=== PATIENT | female | born 1935 | race Caucasian/White ===

== ENCOUNTER → 2016-09-07 | Outpatient (CLI) | payer MEDICARE, OTHER | END | disposition home or self-care (01) | LOC: GMAJ 10:29 | PROVIDERS: ATTEND Family Medicine | DX: E03.9 Hypothyroidism, unspecified (principal) ==

== ENCOUNTER → 2016-10-24 | Outpatient (CLI) | payer MEDICARE, OTHER | END | disposition home or self-care (01) | LOC: GMAJ 10:06 | PROVIDERS: ATTEND Family Medicine | DX: E03.9 Hypothyroidism, unspecified (principal) ==

== ENCOUNTER → 2016-12-11 | Outpatient (CLI) | payer MEDICARE, OTHER ==
--- NOTE | 2016-12-13 13:21 | MAM ---
History: Well woman exam. Date of exam: 12/11/2016 Services provided: Bilateral full field digital screening mammography. CAD, the images were reviewed with R2 computer aided detection. FINDINGS: Glandular tissue is scattered glandular contour with increased mammographic density. Study is compared with 2013 exam. No dominant mass, architectural distortion or clustered microcalcification. IMPRESSION: Benign exam Recommendation: Routine annual mammography BIRAD CATEGORY: 2 BENIGN Electronically signed by: Megan Robison MD 12/13/2016 1:18 PM CDT Workstation: [id number]
== END ==
LOC: MAMMO 14:36
PROVIDERS: ATTEND Family Medicine
DX: Z12.31 Encounter for screening mammogram for malignant neoplasm of breast (principal)

== ENCOUNTER → 2017-03-01 | Outpatient (CLI) | payer MEDICARE, OTHER | LOC: GMAJ 10:37 | PROVIDERS: ATTEND Family Medicine | DX: E03.9 Hypothyroidism, unspecified (principal) ==

== ENCOUNTER → 2017-06-17 | Outpatient (CLI) | payer MEDICARE, OTHER | END | disposition home or self-care (01) | LOC: GMAJ 12:10 | PROVIDERS: ATTEND Family Medicine | DX: E03.9 Hypothyroidism, unspecified (principal) ==

== ENCOUNTER → 2017-06-24 | Outpatient (CLI) | payer MEDICARE, OTHER | END | disposition home or self-care (01) | LOC: GMA 10:58 | PROVIDERS: ATTEND Physician Assistant | DX: N30.00 Acute cystitis without hematuria (principal) ==

== ENCOUNTER → 2017-11-08 | Outpatient (CLI) | payer MEDICARE, OTHER | LOC: GMAJ 11:28 | PROVIDERS: ATTEND Family Medicine | DX: N39.0 Urinary tract infection, site not specified (principal) ==

== ENCOUNTER → 2017-11-27 | Outpatient (CLI) | payer MEDICARE, OTHER ==
--- NOTE | 2017-11-27 16:14 | CT ---
EXAM DESCRIPTION: Abdoment/Pelvis w/o Contrast CLINICAL HISTORY: 82 years, Female, HEMATURIA COMPARISON: CT chest with contrast August 06, 2010 TECHNIQUE: CT of the abdomen and pelvis is performed according to our non contrast protocol. FINDINGS: The lung bases are clear. Heart is prominent size. Coronary artery calcification is present. Left hemidiaphragm is elevated. 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 Small amount fluid is seen anterior to the liver which could be unusual position of the gallbladder or small amount of loculated ascites. Gallbladder was normally positioned on the previous study. Liver, spleen, and pancreas are otherwise unremarkable. No major change since previous study. Question small cyst of the posterior superior right kidney 1 cm in size. The right kidney is otherwise unremarkable. The left kidney is unremarkable. No stones or hydronephrosis. Small bowel loops appear normal in caliber with normal wall thickness. There is no lymphadenopathy, inflammation, or free fluid observed. Severe levoscoliosis of the thoracolumbar spine. In the pelvis, the appendix is not seen and may be surgically absent. No inflammation around the cecum or terminal ileum or sigmoid colon. No stones in the distal ureters or bladder. Urinary bladder appears quite thick walled. This could be muscular hypertrophy or chronic cystitis. Correlate with urinalysis. Rectal wall thickness is normal for degree of distention. No free fluid or mass in the pelvis. Uterus and ovaries are small, normal for age. No inguinal or lower pelvic adenopathy. Coronal and sagittal reformatted images confirm the findings. Bladder wall appears trabeculated with a few diverticula which may indicate neurogenic bladder. Clinical correlation recommended. IMPRESSION: Small fluid collection anterior to the liver versus anomalous position of the gallbladder. Severe levoscoliosis of the lower thoracic and lumbar spine. Thick-walled bladder with small bladder diverticula. See above. This exam was performed according to our departmental dose-optimization program, which includes automated exposure control, adjustment of the mA and/or kV according to patient size and/or use of iterative reconstruction technique. Total DLP equals 263.39 mGycm. Electronically signed by: Alfredo Boyce MD 11/27/2017 4:13 PM CDT
== END ==
LOC: CT 14:22
PROVIDERS: ATTEND Urology
DX: R31.0 Gross hematuria (principal); N32.3 Diverticulum of bladder

== ENCOUNTER → 2017-12-18 | Outpatient (CLI) | payer MEDICARE, OTHER | LOC: LAB.O 14:32 | PROVIDERS: ATTEND Urology | DX: R31.0 Gross hematuria (principal) ==

== ENCOUNTER → 2018-01-16 | Outpatient (CLI) | payer MEDICARE, OTHER ==
--- NOTE | 2018-01-17 16:14 | MAM ---
EXAM DESCRIPTION: 3D Screening BILATERAL : Digital Mammography. CLINICAL HISTORY: 82 years Female SCREENING no complaints. Mother with breast cancer. No childbirth. Postmenopausal. HRT 5 or more years ago. Prior left breast biopsy benign. COMPARISON: 2-D digital screening bilateral study 12/11/2016.. Report from prior examination also reviewed. TECHNIQUE: Bilateral CC and MLO projection full-field images, 3-D tomosynthesis digital mammographic technique. CAD not utilized. FINDINGS: The breast parenchymal density pattern is: Heterogeneously dense breast tissue, which may obscure small masses. No skin thickening or nipple retraction. Bilateral vascular calcifications. Bilateral solitary microcalcifications. Focal asymmetry in the anterior third of the right breast upper outer quadrant at T10 130 clock position approximately 5 cm from the nipple. No new focal, stellate mass or density, focal asymmetry , and no suspicious microcalcifications left breast. IMPRESSION: BI-RADS CATEGORY: 0 - INCOMPLETE- Need additional imaging evaluation. FOLLOW-UP: Recall for additional imagin-D Anu synthesis full-field LM projection images right breast. Spot magnification of the region of interest anterior third right breast 2-D CC projection. Follow-up targeted right breast ultrasound if indicated by diagnostic images.. Written communication concerning the IMPRESSION and Follow-up, will be mailed to the patient and referring health care provider. Electronically signed by: Dominguez Macedo MD 01/17/2018 4:12 PM CDT
== END ==
LOC: MAMMO 13:00
PROVIDERS: ATTEND Family Medicine
DX: Z12.31 Encounter for screening mammogram for malignant neoplasm of breast (principal)

== ENCOUNTER → 2018-01-17 | Outpatient (CLI) | payer MEDICARE, OTHER ==
--- NOTE | 2018-01-17 14:02 | RAD ---
EXAM DESCRIPTION: Wrist,Right 3 Views CLINICAL HISTORY: PAIN IN RIGHT WRIST COMPARISON: None. TECHNIQUE: AP, lateral, and oblique images right wrist. FINDINGS: Overall bone density decreased. Narrowing of the scapholunate and ulnocarpal joints. Minimal soft tissue swelling. Calcification in the scapholunate joint. No fractures. IMPRESSION: Decreased bone density. Significant narrowing of the radiocarpal and ulnocarpal joints. No fracture or dislocation. Electronically signed by: Dominguez Macedo MD 01/17/2018 2:01 PM CDT
== END ==
LOC: RAD 11:37
PROVIDERS: ATTEND Family Medicine
DX: M25.531 Pain in right wrist (principal)

== ENCOUNTER → 2018-01-28 | Outpatient (CLI) | payer MEDICARE, OTHER ==
--- NOTE | 2018-01-28 17:13 | US ---
EXAM DESCRIPTION: Breast,Right: Ultrasound CLINICAL HISTORY: 82 yearsFemaleABNORMAL MAMMOGRAM COMPARISON: Digital 3-D diagnostic mammography right breast on this visit. Bilateral 3-D screening mammography 01/16/2018. TECHNIQUE: Transcutaneous scanning of the right breast utilizing ellis-scale and Doppler modes. Scanning performed by the burner operator and Dr. Macedo. FINDINGS: Scanning of the right breast 4 cm from the nipple from the 900 - 1100 clock positions. Relatively homogeneous fatty echotexture. No distinct solid mass or cyst. No large calcifications or parenchymal edema. Overlying skin changes. No abnormal vascularity. IMPRESSION: 1. Bi-Rads Category 3: Probably Benign Findings. 2. please refer to 3-D diagnostic mammography of the right breast and report on this visit. The FINDINGS and the FOLLOW-UP plan were reviewed in person with the patient after the examination. Written communication explaining the IMPRESSION and FOLLOW-UP will be mailed to the patient and referring care provider. Electronically signed by: Dominguez Macedo MD 01/28/2018 5:12 PM [facility]
--- NOTE | 2018-01-30 08:38 | MAM ---
EXAM DESCRIPTION: 3D Diagnostic, Right: Digital Mammography CLINICAL HISTORY: 82 yearsFemaleABNORMAL MAMMOGRAM focal asymmetry upper outer quadrant right breast and microcalcifications.. COMPARISON: 3-D digital screening bilateral mammography 01/16/2018.. Targeted right breast ultrasound following this examination. Report from prior examination also reviewed. TECHNIQUE: Right LM projection full-field images, 3-D tomosynthesis digital mammographic technique. 2-D digital spot magnification anterior right breast CC and LM projections. CAD not utilized. FINDINGS: The breast parenchymal density pattern is: Heterogeneously dense breast tissue, which may obscure small masses. No skin thickening or nipple retraction focal asymmetry in the upper outer quadrant of the anterior right breast is not well seen on the LM tomosynthesis or the spot magnification images. Groups of microcalcifications are visualized in the middle and posterior third of the medial and central right breast. Also solitary calcifications and vascular calcifications. ULTRASOUND: Scanning of the right breast 4 cm from the nipple from the 900 - 1100 clock positions. Relatively homogeneous fatty echotexture. No distinct solid mass or cyst. No large calcifications or parenchymal edema. Overlying skin changes. No abnormal vascularity. IMPRESSION: BI-RADS CATEGORY: 3 - PROBABLY BENIGN. Management: Short interval (6-month) digital mammography 2D/3D right breast calcifications.. The FINDINGS and the FOLLOW-UP plan were reviewed in person with the patient after the examination. Written communication explaining the IMPRESSION and FOLLOW-UP will be mailed to the patient and referring care provider Electronically signed by: Dominguez Macedo MD 01/30/2018 8:36 AM CDT
== END ==
LOC: MAMMO 11:00
PROVIDERS: ATTEND Family Medicine
DX: R92.8 Other abnormal and inconclusive findings on diagnostic imaging of breast (principal)
CPT/HCPCS: 76641; 77065; G0279

== ENCOUNTER → 2018-04-03 | Outpatient (CLI) | payer MEDICARE, OTHER | LOC: GMATM 16:59 | PROVIDERS: ATTEND Nurse Practitioner Family | DX: R30.0 Dysuria (principal) ==

== ENCOUNTER → 2018-07-29 | Outpatient (CLI) | payer MEDICARE, OTHER ==
--- NOTE | 2018-07-31 11:25 | MAM ---
EXAM DESCRIPTION: 3D Diagnostic, Right: Digital Mammography CLINICAL HISTORY: 83 yearsFemaleABN MAMMO . No complaints or personal history of breast cancer. Mother with breast cancer. No childbirth. Postmenopausal 27 years. HRT 5 or more years ago. Prior benign biopsy left breast. Lifetime risk of developing breast cancer (Tyrer-Cuzick model) percentage is 5.2. COMPARISON: Diagnostic right breast digital tomosynthesis 01/28/2018. Ultrasound right breast on that same visit.. . Bilateral screening digital breast tomosynthesis 01/16/2018 TECHNIQUE: Right breast CC LM MLO projection full-field images, digital mammographic tomosynthesis technique. Right breast 2-D digital full-field MLO image. Indication digital images in the LM and CC projections. CAD not utilized. FINDINGS: Right breast parenchymal density pattern is: Heterogeneously dense breast tissue, which may obscure small masses. No nipple retraction minimal skin thickening around nipple is stable. Vascular calcifications and solitary microcalcifications. Groups of microcalcifications are stable. Hypodense group in the posterior third of the breast. Also stable. No new focal, stellate mass or density, focal asymmetry , and no suspicious microcalcifications right breast. Stable mammograms compared to prior study, taking into account differences in mammographic technique IMPRESSION: Benign exam. BIRAD CATEGORY: 2 BENIGN FINDINGS. RECOMMENDATIONS: FOLLOW UP: Return to routine digital bilateral mammographic screening, one year interval from December 2017 (schedule for December 2018.) The FINDINGS and the FOLLOW-UP plan were reviewed in person by the clinical business analyst, with the patient after the examination. Written communication explaining the IMPRESSION and FOLLOW-UP will be mailed to the patient and referring care provider According to the [employer], yearly mammograms are recommended starting at age 40 and continuing as long as a woman is in good health. Any breast change noted on a breast self-exam should be reported promptly to the patient's healthcare provider. Breast MRI is recommended for women with an approximately 20-25% or greater lifetime risk of breast cancer, including women with a strong family history of breast or ovarian cancer and women who have been treated for Hodgkin's disease. A negative mammographic report should not delay tissue diagnosis in patients with significant clinical history or physical findings. Extremely dense breast tissue limits the sensitivity of digital mammography. Electronically signed by: Dominguez Macedo MD 07/31/2018 11:23 AM [facility]
== END ==
LOC: US 11:00
PROVIDERS: ATTEND Family Medicine
DX: R92.8 Other abnormal and inconclusive findings on diagnostic imaging of breast (principal)
CPT/HCPCS: 77065; G0279

== ENCOUNTER → 2018-08-01 | Outpatient (CLI) | payer MEDICARE, OTHER | LOC: GMAJ 11:14 | PROVIDERS: ATTEND Family Medicine | DX: E03.9 Hypothyroidism, unspecified (principal) ==

== ENCOUNTER → 2018-09-18 | Outpatient (CLI) | payer MEDICARE, OTHER | LOC: LAB.O 14:27 | PROVIDERS: ATTEND Internal Medicine Hematology & Oncology | DX: D72.829 Elevated white blood cell count, unspecified (principal) ==

== ENCOUNTER → 2019-02-02 | Outpatient (CLI) | payer MEDICARE, OTHER ==
--- NOTE | 2019-02-03 17:18 | MAM ---
EXAM DESCRIPTION: 3D Screening BILATERAL : Digital Mammography. CLINICAL HISTORY: 83 years Female Annual screening . No complaints or personal history of breast cancer. Mother with breast cancer at age 43. No childbirth. Postmenopausal 20+ years. HRT 5 or more years ago. Lifetime risk of developing breast cancer (Tyrer-Cuzick model)(%): 5.2. COMPARISON: Bilateral screening digital breast tomosynthesis 01/16/2018. Right breast diagnostic tomosynthesis and ultrasound 01/28/2018. Right breast diagnostic tomosynthesis 07/29/2018.. TECHNIQUE: Bilateral CC and MLO projection full-field images, digital tomosynthesis mammographic technique. Bilateral digital 2-D full-field MLO images. CAD not available for tomosynthesis or 2-D images. FINDINGS: The breast parenchymal density pattern is: Heterogeneously dense breast tissue, which may obscure small masses. No skin thickening or nipple retraction. Bilateral solitary microcalcifications and small groups of calcifications with a benign appearance. Bilateral vascular calcifications. Bilateral focal asymmetries are stable. No new focal, stellate mass or density, focal asymmetry , and no suspicious microcalcifications bilaterally. Stable mammograms compared to prior diagnostic and screening studies.. IMPRESSION: Benign exam. BIRAD CATEGORY: 2 BENIGN FINDINGS. RECOMMENDATIONS: FOLLOW UP: Routine digital bilateral mammographic screening, one year interval from January 2019. Written communication explaining the IMPRESSION and follow-up, will be mailed to the patient and referring health care provider. According to the [employer], yearly mammograms are recommended starting at age 40 and continuing as long as a woman is in good health. Any breast change noted on a breast self-exam should be reported promptly to the patient's healthcare provider. Breast MRI is recommended for women with an approximately 20-25% or greater lifetime risk of breast cancer, including women with a strong family history of breast or ovarian cancer and women who have been treated for Hodgkin's disease. A negative mammographic report should not delay tissue diagnosis in patients with significant clinical history or physical findings. Extremely dense breast tissue limits the sensitivity of digital mammography. Electronically signed by: Dominguez Macedo MD 02/03/2019 5:15 PM CDT
== END ==
LOC: MAMMO 13:30
PROVIDERS: ATTEND Family Medicine
DX: Z12.31 Encounter for screening mammogram for malignant neoplasm of breast (principal)

== ENCOUNTER → 2019-02-03 | Outpatient (CLI) | payer MEDICARE, OTHER | LOC: GMAJ 11:03 | PROVIDERS: ATTEND Family Medicine | DX: E03.9 Hypothyroidism, unspecified (principal); I10 Essential (primary) hypertension; E78.00 Pure hypercholesterolemia, unspecified ==

== ENCOUNTER → 2019-05-26 | Outpatient (CLI) | payer MEDICARE, OTHER ==
--- NOTE | 2019-05-26 16:03 | CT ---
CT CHEST WITH IV CONTRAST HISTORY: 84 years Female ACUTE BRONCHITIS COMPARISON: August 06, 2010. TECHNIQUE: Helical tomographic images of the chest were obtained after the intravenous administration of 100 cc of Isovue-370. Coronal and sagittal reformatted images were also provided. This exam was performed according to our departmental dose-optimization program, which includes automated exposure control, adjustment of the mA and/or kV according to patient size and/or use of iterative reconstruction technique. FINDINGS: Limited exam secondary to marked scoliotic curvature. Lungs and central airways: Severe radiologic changes of emphysema are again demonstrated. There is increased masslike density in the region of previously demonstrated apical scarring in the right upper lobe. Most prominent area of solid masslike density measures approximately 1.6 x 2.4 x 2.4 cm (/, 602/64). There are also multifocal small geographic groundglass opacities scattered throughout the right lower lobe with adjacent interlobular septal thickening. Left lung is clear. Pleura: No pleural effusion observed. Pleural thickening in the right apex adjacent to the region of apical scarring appears grossly similar to the prior exam performed in 2010. Heart/pericardium: Heart size is normal. No significant pericardial fluid detected. Mediastinum/deonna: No mediastinal or hilar mass or lymphadenopathy. Esophagus is patulous throughout, nonspecific but commonly seen in setting of GERD. Vascular structures: There are scattered atherosclerotic changes noted, including involvement of the coronary arteries. Abnormal prominence of the pulmonary trunk and main pulmonary arteries, suggesting elevated pulmonary arterial pressures. Regional surrounding soft tissues: No acute process detected. Bones: No acute process detected. Marked scoliotic curvature of the spine as above. Severe degenerative changes are demonstrated throughout the included spine Included abdomen: Small fat-containing Bochdalek hernias bilaterally. Gallbladder is not seen and may be surgically absent. Simple appearing cysts again demonstrated within the partially imaged kidneys. No acute process detected. IMPRESSION: Enlarging masslike density in the region of previously demonstrated apical scarring in the right upper lobe, concerning for possible malignancy. PET/CT and/or CT-guided percutaneous biopsy may be of benefit. Small geographic pulmonary opacities scattered throughout the right lower lobe are most suggestive of multifocal infection in the setting of acute bronchitis. Attention on follow-up examinations after appropriate therapy is suggested to ensure resolution. Abnormal prominence of pulmonary trunk and main pulmonary arteries consistent with elevated pulmonary artery pressures. Electronically signed by: Yuri Barber MD 05/26/2019 4:01 PM [facility]
== END ==
LOC: CT 13:00
PROVIDERS: ATTEND Family Medicine
DX: J20.9 Acute bronchitis, unspecified (principal); R91.8 Other nonspecific abnormal finding of lung field

== ENCOUNTER → 2020-01-06 | Outpatient (CLI) | payer MEDICARE, OTHER ==
--- NOTE | 2020-01-07 11:38 | CT ---
EXAM DESCRIPTION: Chest w/o Contrast CLINICAL HISTORY: 84 years Female, LUNG MASS COMPARISON: CT chest dated 05/26/2019. TECHNIQUE: Contiguous thin section axial images through the chest were obtained without the administration of intravenous contrast. Sagittal and coronal reconstructions were reviewed. FINDINGS: The visualized thyroid gland and supraclavicular region appear normal. No evidence of abnormally enlarged mediastinal, hilar or axillary lymphadenopathy. Trachea is midline and the central tracheobronchial tree is patent. Scarring and or atelectasis is identified in the right lung apex. Again identified is a soft tissue density measuring 2.4 x 1.7 cm in the right lung apex, unchanged compared to prior examination. Tree-in-bud nodules are again identified in the right lower lobe with some degree of improvement. No other suspicious nodules or masses are visualized. No evidence of groundglass or consolidative changes. No evidence of pleural effusions. The heart is normal in size with no pericardial effusion. The visualized aorta is nonaneurysmal with moderate atherosclerosis. The superior vena cava is normal in size and caliber.No significant coronary artery atherosclerosis. The esophagus appears normal throughout its visualized length. Limited evaluation of the upper abdomen demonstrates no gross abnormality. Moderate to severe degenerative changes are noted throughout the visualized spine. Nondisplaced fracture of the posterior aspect of the left 11th rib. IMPRESSION: 1. Stable 2.4 x 1.7 cm masslike density in the right lung apex compared to prior examination. Continued follow-up is recommended. 2. Tree-in-bud nodules are again identified in the right lower lobe with some interval improvement. 3. Nondisplaced fracture of the posterior aspect of the left 11th rib. This exam was performed according to our departmental dose-optimization program, which includes automated exposure control, adjustment of the mA and/or kV according to patient size and/or use of iterative reconstruction technique. Electronically signed by: Josefa Winter MD 01/07/2020 11:36 AM CDT
== END ==
LOC: CT 13:08
PROVIDERS: ATTEND Thoracic Surgery (Cardiothoracic Vascular Surgery)
DX: R91.8 Other nonspecific abnormal finding of lung field (principal); S22.32XA Fracture of one rib, left side, initial encounter for closed fracture

== ENCOUNTER → 2020-02-19 | Outpatient (CLI) | payer MEDICARE, OTHER ==
--- NOTE | 2020-02-23 15:37 | MAM ---
EXAM DESCRIPTION: 3D Screening BILATERAL : Digital Mammography. CLINICAL HISTORY: 84 years Female ANNUAL SCREENING . No complaints. Mother with breast cancer at age 45. Menarche age 13. No childbirth. Menopause age 56.. Lifetime risk of developing breast cancer (Tyrer-Cuzick model)(%): Not calculated COMPARISON: Bilateral screening digital breast tomosynthesis January 2019 and December 2017. Diagnostic right breast tomosynthesis July 2018. TECHNIQUE: Bilateral CC and MLO projection full-field images, digital tomosynthesis mammographic technique. Bilateral digital 2-D full-field MLO images. CAD available for 2-D images. FINDINGS: The breast parenchymal density pattern is: Heterogeneously dense breast tissue, which may obscure small masses. No skin thickening or nipple retraction. Vascular calcifications. Solitary microcalcifications. Stable minimal skin thickening bilaterally around nipples. Stable focal asymmetry central left breast abutting the posterior nipple line. No new focal, stellate mass or density, focal asymmetry , and no suspicious microcalcifications bilaterally. Stable mammograms compared to prior study. IMPRESSION: Benign exam. BIRAD CATEGORY: 2 BENIGN FINDINGS. RECOMMENDATIONS: FOLLOW UP: Routine digital bilateral mammographic screening, one year interval from January 2020. Written communication explaining the IMPRESSION and follow-up, will be mailed to the patient and referring health care provider. According to the [employer], yearly mammograms are recommended starting at age 40 and continuing as long as a woman is in good health. Any breast change noted on a breast self-exam should be reported promptly to the patient's healthcare provider. Breast MRI is recommended for women with an approximately 20-25% or greater lifetime risk of breast cancer, including women with a strong family history of breast or ovarian cancer and women who have been treated for Hodgkin's disease. A negative mammographic report should not delay tissue diagnosis in patients with significant clinical history or physical findings. Extremely dense breast tissue limits the sensitivity of digital mammography. Electronically signed by: Dominguez Macedo MD 02/23/2020 3:35 PM CDT
== END ==
LOC: MAMMO 09:52
PROVIDERS: ATTEND Family Medicine
DX: Z12.31 Encounter for screening mammogram for malignant neoplasm of breast (principal)

== ENCOUNTER → 2020-09-13 | Outpatient (CLI) | payer MEDICARE, OTHER ==
--- NOTE | 2020-09-14 15:46 | CT ---
EXAM: Chest w/o Contrast INDICATION: lung mass . COMPARISON: Chest CT without contrast 08/07/2019 , CT chest with contrast 05/26/2019 TECHNIQUE: CT of the chest was performed without IV contrast. Multiple axial images and multiplanar reconstructions were generated. This exam was performed according to our departmental dose-optimization program, which includes automated exposure control, adjustment of the mA and/or kV according to patient size and/or use of iterative reconstruction technique. FINDINGS: Heart: Heart size is within normal limits. No pericardial effusion. Coronary artery atherosclerosis. Great vessels: The main pulmonary artery is enlarged up to approximately 3.4 cm in diameter. The caliber of the aorta is within normal limits. Moderate to severe atherosclerosis in the thoracic aorta. Mediastinum: No mediastinal lymphadenopathy. No discrete mediastinal masses. Lungs: Pleural parenchymal scarring and traction bronchiectasis in the right lung apex, associated with a 2 x 1.4 cm mass which has remained essentially unchanged since the examination of 05/26/2019. Stable 3 mm solid subpleural pulmonary nodule in the posterior right lower lobe (axial series 4 image 75). A few punctate calcified granulomata are noted. Subtle tree-in-bud type reticulonodular opacities are noted in the peripheral right lower lobe, significantly improved from the prior study of 05/26/2019. The appearance is similar to the examination of 01/06/2020. No pleural effusion. No pneumothorax. Esophagus: Unremarkable appearance of the esophagus. Thyroid: Unremarkable appearance of the visualized portions of the thyroid gland. Visualized upper abdomen: No acute abnormality is identified in the visualized portions of the upper abdomen. Bones: Osteopenia. Severe scoliosis. No apparent destructive osseous lesion. No acute fracture is identified. Degenerative changes in the spine. Body wall: Unremarkable appearance of the visualized soft tissues of the body wall. IMPRESSION: 1. Pleural parenchymal scarring in the right lung apex with an associated 2 x 1.4 cm mass which has been essentially unchanged since 05/26/2019. Continued follow-up is recommended. Biopsy or PET/CT can also be considered if this has not already been done. 2. Subtle tree-in-bud opacities in the peripheral right lower lobe, significantly improved from the study of 2018 and similar to the prior study of 2019. 3. The main pulmonary artery is mildly enlarged, measuring up to 3.4 cm in diameter. This can be seen with pulmonary hypertension. Correlate clinically. 4. Additional stable findings as described above. Electronically signed by: Negra Lara MD 09/14/2020 3:45 PM [facility]
== END ==
LOC: CT 13:50
PROVIDERS: ATTEND Thoracic Surgery (Cardiothoracic Vascular Surgery)
DX: R91.8 Other nonspecific abnormal finding of lung field (principal); J98.4 Other disorders of lung; I28.8 Other diseases of pulmonary vessels